=== PATIENT | female | born 1960 | race Native Hawaiian/Other Pacific Islander ===

== ENCOUNTER 2022-08-11 14:50 | Emergency (ER) | payer OTHER ==
[~2022-08-11] VITALS: Ht 172.7 cm; Wt 55.3 kg
[2022-08-11 14:50] VITALS: BP 113/76; TEMP 99.9
== END 2022-08-11 15:34 | disposition home or self-care (01) ==
LOC: ED 14:50
DX: J01.80 Other acute sinusitis (principal)
CPT/HCPCS: 99281